=== PATIENT | male | born 1980 | race Caucasian/White ===

== ENCOUNTER 2016-05-27 19:21 | Emergency (ER) | payer OTHER ==
[~2016-05-27] VITALS: Ht 175.3 cm; Wt 117.2 kg
[~2016-05-27 19:21] MED LIST: KEFLEX500 MG PO
[2016-05-27] MEDS ORDERED: INDOCIN25 MG PO (21:12)
[2016-05-27 21:35] VITALS: BP 148/89
== END 2016-05-27 21:36 | disposition home or self-care (01) ==
LOC: EME 19:21 → EXP 19:21
DX: S60.041A Contusion of right ring finger without damage to nail, initial encounter (principal); X58.XXXA Exposure to other specified factors, initial encounter; Y99.0 Civilian activity done for income or pay
CPT/HCPCS: 73140; 99281; 99283